=== PATIENT | male | born 1965 | race Caucasian/White ===

== ENCOUNTER 2020-09-01 11:19 | Emergency (ER) | payer MEDICAID ==
[2020-09-01 19:36] LABS: SARS-CoV-2 MS2 Positive; SARS-CoV-2 N Gene Negative; SARS-CoV-2 S Gene Negative; SARS-CoV-2 by NAA Not Detected (NotDetected); SARS-CoV-2 orf1ab Negative
== END 2020-09-01 11:48 | disposition home or self-care (01) ==
LOC: ERS 11:19
DX: Z20.828 Contact with and (suspected) exposure to other viral communicable diseases (principal); I50.9 Heart failure, unspecified; F17.210 Nicotine dependence, cigarettes, uncomplicated; Z79.899 Other long term (current) drug therapy
CPT/HCPCS: 87635; 99283; U0003

== ENCOUNTER 2021-09-21 22:47 | Emergency (ER) | payer MEDICAID, OTHER ==
[~2021-09-21 22:47] MED LIST: Iopamidol-370 76% 500 ML 1 ML ONE
[2021-09-21 23:33] LABS: #Basophils 0.1 thou/uL (0.0-0.2); #Lymphocytes 1.5 thou/uL (1.20-3.40); #Monocytes 0.9 thou/uL (0.11-0.59); #Neutrophils 9.1 thou/uL (1.40-6.50); %Basophils 0.6 % (0.0-1.0); %Eosinophils 0.1 % (0.0-10.0); %Lymphocytes 12.7 % (21.0-51.0); %Monocytes 7.6 % (0.0-10.0); %Neutrophils 78.8 % (42.0-75.0); Mean Corpuscular Hemoglobin 32.4 pg (27.0-31.0); Mean Corpuscular Volume 95.3 fL (78.0-98.0); Mean Platelet Volume 7.6 fL (7.4-10.4); Platelet Count 221 thou/uL (130-400); RBC Distribution Width 13.5 % (11.5-14.5); Red Blood Cell (RBC) Count 4.31 mill/uL (4.70-6.10); White Blood Cell (WBC) Count 11.5 thou/uL (4.8-10.8)
[2021-09-21 23:57] LABS: ALT (SGPT) 24 U/L (8-55); AST (SGOT) 39 U/L (5-34); Albumin 4.1 g/dL (3.5-5.0); Alkaline Phosphatase 75 U/L (40-110); Anion Gap 16 mmol/L (10-20); BUN (Urea Nitrogen) 27 mg/dL (8.4-25.7); Bilirubin, Total 0.6 mg/dL (0.2-1.2); Calc. Creatinine Clearance 0 mL/min (70-130); Calcium 9.2 mg/dL (7.8-10.44); Carbon Dioxide 20 mmol/L (22-29); Chloride 103 mmol/L (98-107); Globulin 3.1 g/dL (2.4-3.5); Glucose 155 mg/dL (70-105); Potassium 4.3 mmol/L (3.5-5.1); Protein, Total 7.2 g/dL (6.0-8.3); Sodium 135 mmol/L (136-145)
[2021-09-22] MEDS ORDERED: Furosemide 40 MG/4 ML VIAL ONE (00:03)
[2021-09-22 00:12] LABS: Bacteria/HPF None Seen HPF (None Seen); Bilirubin Negative (Negative); Blood, Urine Negative (Negative); Clarity Clear (Clear); Glucose, Urine (Dipstick) Normal (Negative); Ketone, Urine Negative (Negative); Leukocyte Negative Leu/uL (Negative); Mucous/LPF 1+ LPF (<2+); Nitrite Negative (Negative); Protein, Urine (Dipstick) 30 mg/dL (Neg-Trace); RBC/HPF 0-3 HPF (0-3); Specific Gravity, Urine 1.028 (1.002-1.036); Squamous Epithelial None Seen HPF (0-3); Urobilinogen Normal mg/dL (Less than 2); WBC/HPF 0-3 HPF (0-3)
[2021-09-22 00:46] LABS: SARS-CoV-2 NAA Rapid Test Not Detected (NotDetected)
[2021-09-22] MEDS ORDERED: cefTRIAXone\\ROCEPHIN 2 GM VIAL ONE (01:13)
[2021-09-22 01:24] LABS: Amphetamine Not Detected (NotDetected); Barbiturates Screen Not Detected (NotDetected); Benzodiazepine Screen Not Detected (NotDetected); Cocaine Metabolite Screen Not Detected (NotDetected); Methadone Not Detected (NotDetected); Methamphetamine Not Detected (NotDetected); Opiate Screen Not Detected (NotDetected); Oxycodone Screen Not Detected (NotDetected); Phencyclidine (PCP) Not Detected (NotDetected); THC/Cannabinoid Screen Detected (NotDetected); Tricyclic Screen Not Detected (NotDetected)
[2021-09-22] MEDS ORDERED: Azithromycin 500 MG in Sodium Chloride 0.9% 250 ML 250 ML IVPB SCH (01:30)
[2021-09-22 01:59] LABS: Acetaminophen Less than 6.0 mcg/mL (10.0-30.0); Alcohol Less than 10 mg/dL (Less than 10); Salicylate Less than 8.0 mg/dL (15.0-30.0)
[2021-09-22] MEDS ORDERED: Promethazine HCl 25 MG/ML VIAL ONE (02:33)
== END 2021-09-22 02:52 | disposition short-term general hospital (02) ==
LOC: ERS 22:47
DX: I50.9 Heart failure, unspecified (principal); A41.9 Sepsis, unspecified organism; J18.9 Pneumonia, unspecified organism; Z20.822 Contact with and (suspected) exposure to COVID-19; Z87.891 Personal history of nicotine dependence; Z79.82 Long term (current) use of aspirin; Z79.899 Other long term (current) drug therapy
CPT/HCPCS: 36415; 71275; 80053; 80306; 80307; 81003; 81015; 83605; 83690; 83880; 84484; 85025; 87040; 93005; 96365; 96375; J0456; J0696; J1940; J2550; J7050; Q9967; U0002